=== PATIENT | male | born 1985 | race Caucasian/White ===

== ENCOUNTER 2024-01-23 09:42 | Emergency (ER) | payer BC, SELFPAY ==
[2024-01-23 09:42] VITALS: BP 137/101; PULSE 79; RESP 14; TEMP 36.6; O2SAT 97; BMI 26.6
--- NOTE | 2024-01-23 09:58 | EDS_ITS ---
HPI History of Present Illness Chief Complaint: General Illness Narrative Narrative: 38-year-old male who denies significant past medical history presents with his because of the feeling of lightheadedness and weakness at work this morning. He relates history that he has been having problems with a tooth in his left upper jaw. A few weeks ago he had a round of antibiotics for 5 days and his pain resolved. Over the last day or 2, his pain came back. He was seen at [facility] emergency department last evening and received antibiotics in the form of what he believes to be Augmentin, and was given a prescription. This morning, while he was at work at 730, approximately 2 and half hours ago, he felt off with possible generalized weakness and lightheadedness. He denies vertiginous type symptoms. States he does not feel well. No exacerbating or alleviating factors. PFSH PFSH Allergy/AdvReac Type Severity Reaction Status Date / Time coconut Allergy Severe Angioedema Verified 01/23/24 09:45 Social History Smoking Status: Former smoker ROS ROS ED ROS Narrative Constitutional: No fever, no chills. Generalized weakness, malaise. HEENT: No sore throat. No neck pain. No loss of vision. No rhinorrhea. Left upper jaw pain from dental carry. Left cheek swelling. Cardiovascular: No chest pain. No palpitations. No pedal edema. Respiratory: No cough, no shortness of breath. Abdominal: No abdominal pain. No nausea. No vomiting. Genitourinary: No dysuria. No hematuria. Musculoskeletal: No myalgias. No arthralgias. Neurologic: No headaches. No dizziness. Positive lightheadedness, questionably worse with standing. Skin: No rash. No change in color. Psychiatric: No depression. No anxiety. EXAM Physical Exam Narrative Exam Narrative: Afebrile. Vital signs noted. HEENT: Normocephalic. Atraumatic. PERRL, EOMI. Neck soft and supple. No point tenderness or step off. Positive dental carry left upper jaw, no fluctuance of the gum, no drooling or trismus. Airway patent. Cardiovascular: Regular rate and rhythm. No murmurs, rubs, or gallops appreciated. Respiratory: No tachypnea. Lungs clear to auscultation bilaterally. Gastrointestinal: Abdomen soft, nontender, with normoactive bowel sounds. No rebound or guarding. Neurological: Awake. Alert. Nonfocal, nonlateralizing. Ambulatory in the emergency department. Skin: No rash. Normal color. No pallor. Musculoskeletal: No pedal edema. Full range of motion extremities. Const Vital Signs: 01/23/24 09:42 01/23/24 09:49 01/23/24 10:20 Temperature 98 F Temperature Source Temporal Pulse Rate 79 Pulse Rate [Lying] 77 Pulse Rate [Sitting (for 1 minute prior to obtaining)] 74 Pulse Rate [Standing (for 1 minute prior to obtaining)] 76 Respiratory Rate 14 Respiratory Effort Normal Blood Pressure 137/101 H Blood Pressure [Lying] 138/90 H Blood Pressure [Sitting (for 1 minute prior to obtaining)] 142/99 H Blood Pressure [Standing (for 1 minute prior to obtaining)] 144/104 H Blood Pressure Mean 113 Blood Pressure Mean [Lying] 106 Blood Pressure Mean [Sitting (for 1 minute prior to obtaining)] 113 Blood Pressure Mean [Standing (for 1 minute prior to obtaining)] 117 Pulse Ox 97 Oxygen Delivery Method Room Air MDM MDM MDM Narrative Medical decision making narrative: Differential diagnosis includes but not limited to orthostatic hypotension versus intravascular volume depletion versus dehydration versus generalized weakness secondary to infection. Patient is afebrile here, not tachycardic. He will be bolused normal saline 1 L intravenously. Orthostatics will be obtained as well. I will check baseline laboratories to make sure he is not anemic or dehydrated or have another electrolyte imbalance that could be the cause of his lightheadedness. Orthostatics obtained and reviewed and are negative for orthostatic hypotension. I reviewed his laboratory work and he has normal white count 9.3, hemoglobin normal at 14.5, platelet count normal at 297. Electrolyte panel is significant for chloride of 109 which I think is nonspecific, normal BUN and creatinine. LFTs are grossly normal as well. Urinalysis is negative for infection. Repeat examination at approximately 11 AM shows him to feel the same. He is using his cellular telephone. I feel he can be discharged to follow-up with his primary care provider. I do not feel he requires observation or admission or any imaging. Return instructions were reviewed. Disposition is discharged home in stable condition. History & Record Review Discussion w/independent historian: Patient Lab Data Attestation: I reviewed the patient's lab results. Labs: Laboratory Results - last 24 hr 01/23/24 01/23/24 10:10 10:35 WBC 9.3 RBC 4.57 L Hgb 14.5 Hct 43.2 MCV 94.5 H MCH 31.7 MCHC 33.6 RDW Std Deviation 41.1 RDW Coeff of Larisa 11.9 Plt Count 297 MPV 10.3 Immature Gran % (Auto) 0.500 Neut % (Auto) 74.7 H Lymph % (Auto) 15.9 L Burnett % (Auto) 7.9 Eos % (Auto) 0.8 Baso % (Auto) 0.2 Absolute Neuts (auto) 7.0 Absolute Lymphs (auto) 1.48 Nucleated RBC % 0 Sodium 141 Potassium 4.0 Chloride 109 H Carbon Dioxide 26.0 Anion Gap 6 BUN 14 Creatinine 0.92 Estim Creat Clear Calc 123.03 Est GFR (MDRD) Af Amer 119 Est GFR (MDRD) Non-Af 98 BUN/Creatinine Ratio 15.3 Glucose 109 H Calcium 8.7 Total Bilirubin 0.40 AST 20 ALT 43 Alkaline Phosphatase 59 Total Protein 7.1 Albumin 3.5 Globulin 3.6 Albumin/Globulin Ratio 1.0 Urine Color Yellow Urine Clarity Clear Urine pH 6.5 Ur Specific Winter 1.020 Urine Protein 15 H Urine Glucose (UA) Normal Urine Ketones Negative Urine Occult Blood Negative Urine Nitrite Negative Urine Bilirubin Negative Urine Urobilinogen Normal Ur Leukocyte Esterase Negative Urine RBC 0 SEEN Urine WBC 0 SEEN Ur Squamous Epith Cells 0 SEEN Urine Bacteria 1+ Hyaline Casts 0-5 SEEN Urine Mucus 1+ Discharge Plan Triage Chief Complaint: General Illness ED Provider: Rickey Palencia Dx/Rx/DC Orders Clinical Impression: Lightheadedness, Malaise Instructions: ED Near-Fainting, Uncertain Cause, ED Weakness (Uncertain Cause) Primary Care Provider: Maxine Bucio NP Referrals: Maxine Bucio W[employer]ER F[employer]RICATION OPERATOR, WAFER FABRICATION OPERATOR-C [Primary Care Provider] - 3-5 Days if not improving Print Language: Guamanian Disposition Disposition: Home, Self Care
[2024-01-23] MEDS: 0.9% Normal Saline (1000mL) 1,000 ML 1000 ML IV (10:07)
[2024-01-23 10:20] VITALS: BP 138/90; BP 142/99; BP 144/104; PULSE 74; PULSE 76; PULSE 77
[2024-01-23 10:20] LABS: Absolute Lymphocyte Count 1.48 X10^3/uL (0.83-4.51); Basophil# 0.02 X10^3/uL; Basophil% 0.2 % (0-1); Eosinophil# 0.07 X10^3/uL; Eosinophils% 0.8 % (0-5); Hematocrit 43.2 % (40-54); Hemoglobin 14.5 g/dL (13.0-16.5); Lymphocyte # 1.48 X10^3/ul (0.83-4.51); Lymphocyte % 15.9 % (19-41); Mean Corp Hgb Conc 33.6 g/dL (32-36); Mean Corpuscular Hgb 31.7 pg (27.0-32.0); Mean Corpuscular Volume 94.5 fL (80-94); Mean Platelet Vol. 10.3 fl (6.2-12.0); Monocyte# 0.74 X10^3/uL; Monocyte% 7.9 % (0-10); NRBC Flagged by Analyzer 0 % (0-5); Neutrophil # 6.96 X10^3/uL (2.7-7.7); Neutrophil % 74.7 % (47-70); Platelet Count 297 K/mm3 (150-450); RBC Distribution Width CV 11.9 % (11.6-14.6); RBC Distribution Width SD 41.1 fl (35.1-43.9); Red Blood Count 4.57 M/mm3 (4.6-6.2); White Blood Count 9.3 K/mm3 (4.4-11.0)
[2024-01-23 10:33] LABS: AST(SGOT) 20 U/L (15-37); Alanine Aminotransfer ALT/SGPT 43 U/L (16-61); Albumin, Serum 3.5 g/dL (3.2-5.0); Alkaline Phosphatase 59 U/L (45-117); Anion Gap 6 (5-15); BUN 14 mg/dL (7-18); BUN/Creat Ratio 15.3 RATIO (10-20); Calcium,Total 8.7 mg/dL (8.5-10.1); Chloride 109 mmol/L (98-107); Creatinine, Serum 0.92 mg/dL (0.70-1.30); EST Glomerular Filtration Rate 98 mL/min (>60); Est Glom Filt Rate - Afr Amer 119 mL/min (>60); Estimated Creatinine Clearance 123.03 ml/min; Globulin 3.6 g/dL (2.2-4.2); Glucose 109 mg/dL (74-106); Protein, Total 7.1 g/dL (6.4-8.2); Sodium Level 141 mmol/L (136-145)
[2024-01-23 10:37] LABS: Red Blood Cells-Urine 0 SEEN /hpf (0-5); Squamous Epithelial Cells - UA 0 SEEN /hpf (0-5); White Blood Cells 0 SEEN /hpf (0-5)
[2024-01-23 10:41] LABS: Color, Urine Yellow (Yellow); Glucose, Dipstick Normal (Normal); Ketone-Dipstick Negative (Negative); Leukocyte Esterase-Dipstick Negative /ul (Negative); Nitrite-Dipstick Negative (Negative); Occult Blood-Urine Negative /ul (Negative); Protein-Dipstick 15 mg/dl (Negative); Urine Bilirubin Dipstick Negative (Negative); Urine Clarity Clear (Clear); Urine Urobilinogen Normal (Normal); Urine pH 6.5 (5.0 - 8.0)
[2024-01-23 10:53] LABS: Bacteria 1+ /hpf (None Seen); Hyaline Cast 0-5 SEEN /lpf (0-5); Mucous, Urine 1+ /hpf (<or=2+)
== END 2024-01-23 11:30 | disposition home or self-care (01) ==
PROVIDERS: Emergency Provider Emergency Medicine; PCP Nurse Practitioner Family; Visit Provider Emergency Medicine
DX: R42 Dizziness and giddiness (principal); R53.81 Other malaise; K02.9 Dental caries, unspecified; Z87.891 Personal history of nicotine dependence
CPT/HCPCS: 80053; 81001; 85025; 96360; 99284; J7030; A4216